=== PATIENT | male | born 1970 | race Caucasian/White ===

== ENCOUNTER 2016-08-05 21:17 | Emergency (ER) | payer OTHER ==
[~2016-08-05] VITALS: Ht 188 cm; Wt 158.6 kg
[~2016-08-05 21:17] MED LIST: AVENTYL,PAMELOR25 MG PO; CELEBREX200 MG PO; ELIQUIS5 MG PO; LIORESAL I2000 MCG/1 IT; NEURONTIN300 MG PO; NEURONTIN600 MG PO; NORMODYNE,TRAN200 MG PO; PROCARDIA XL60 MG PO
[2016-08-05 22:49] VITALS: BP 130/70
== END 2016-08-05 22:54 | disposition home or self-care (01) ==
LOC: EME 21:17
PROC: 0HBMXZZ Excision of Right Foot Skin, External Approach (ICD-10-PCS; principal; 2016-08-05)
DX: S91.301A Unspecified open wound, right foot, initial encounter (principal); L97.929 Non-pressure chronic ulcer of unspecified part of left lower leg with unspecified severity; L97.919 Non-pressure chronic ulcer of unspecified part of right lower leg with unspecified severity; I10 Essential (primary) hypertension; G62.9 Polyneuropathy, unspecified; G11.4 Hereditary spastic paraplegia; Z87.891 Personal history of nicotine dependence
CPT/HCPCS: 99281; 99283

== ENCOUNTER 2016-08-11 15:33 | Inpatient (IN) | payer OTHER ==
[~2016-08-11] VITALS: Ht 188 cm; Wt 161.3 kg
[2016-08-11 17:31] LABS: EOSINOPHIL (%) 0.8 % (0-5); EOSINOPHIL COUNT 0.1 K/uL (0-0.3); HEMATOCRIT 35.1 % (38.0-50.0); IMMATURE GRANULOCYTE (%) 0.6 % (0.0-0.7); IMMATURE GRANULOCYTE COUNT 0.1 K/uL; INSTRUMENT ABS NEUTROPHIL CT 9.1 K/uL; LYMPHOCYTE COUNT 1.8 K/uL (1.0-2.8); MCH 27.7 PG (29.0-34.0); MCHC 31.9 G/DL (30.0-36.0); MCV 86.7 FL (86-99); MEAN PLAT.VOLUME 9.7 uM^3 (9.0-12.4); MONOCYTE (%) 7.1 % (3-12); MONOCYTE COUNT 0.9 K/uL (0-0.8); NEUTROPHIL (%) 75.9 % (45-76); NEUTROPHIL COUNT 9.1 K/uL (1.8-6.4); PLATELET COUNT 364 K/uL (156-360); RBC DIS.WIDTH-CV 14.1 % (11.8-14.6); RBC DIS.WIDTH-SD 45.1 % (39-53); RED BLOOD COUNT 4.05 M/uL (4.00-5.50)
[2016-08-11 18:11] LABS: CHLORIDE 103 mEq/L (99-109); POTASSIUM 4.1 mEq/L (3.7-5.4); SODIUM 137 mEq/L (136-147)
[2016-08-11 18:13] LABS: GLUCOSE 66 mg/dL (70-99)
[2016-08-11 18:14] LABS: ANION GAP 8 MEQ/L (2-14)
[2016-08-11 18:17] LABS: GFR ESTIMATE (CALCULATED) > 59 mL/min/
[2016-08-11 18:18] LABS: UREA NITROGEN (BUN) 15 mg/dL (9-23)
[2016-08-11 18:42] LABS: POINT-OF-CARE METER ID UU14100415; POINT-OF-CARE USER ID PUTMLD10
[2016-08-11] MEDS ORDERED: ELIQUIS5 MG PO (19:21)
[2016-08-11] MEDS ORDERED: MICRO-K10 ME2 PO (19:22)
[2016-08-11] MEDS ORDERED: GLIMEPIRIDE2 MG PO (19:22)
[2016-08-11] MEDS ORDERED: MAGNESIUM250 MG PO (19:22)
[2016-08-11] MEDS ORDERED: FUROSEMIDE40 MG PO (19:23)
[2016-08-11] MEDS ORDERED: KETOCONAZOLE120 ML TP (19:23)
[2016-08-11] MEDS ORDERED: LYRICA75 MG PO (19:24)
[2016-08-11] MEDS ORDERED: METFORMIN HCL750 MG PO (19:24)
[2016-08-11] MEDS ORDERED: CLINDAMYCIN HC150 MG PO (19:25)
[2016-08-11] MEDS ORDERED: BUSPAR10 MG PO (19:26)
[2016-08-11 20:42] LABS: CREATINE KINASE 239 IU/L (1-294)
[2016-08-11 21:21] VITALS: BP 132/73
[2016-08-11 21:41] LABS: POINT-OF-CARE METER ID UU13113725
[2016-08-12 00:16] LABS: POINT-OF-CARE METER ID UU13113725
[2016-08-12 01:03] LABS: POINT-OF-CARE METER ID UU13113725
[2016-08-12 03:33] LABS: POINT-OF-CARE METER ID UU13113725
[2016-08-12 06:28] LABS: POINT-OF-CARE METER ID UU13113725
[2016-08-12 07:29] LABS: BASOPHIL COUNT 0.1 K/uL (0-0.1); EOSINOPHIL (%) 1.1 % (0-5); EOSINOPHIL COUNT 0.1 K/uL (0-0.3); HEMATOCRIT 33.1 % (38.0-50.0); IMMATURE GRANULOCYTE (%) 0.5 % (0.0-0.7); IMMATURE GRANULOCYTE COUNT 0.1 K/uL; INSTRUMENT ABS NEUTROPHIL CT 7.4 K/uL; LYMPHOCYTE COUNT 1.8 K/uL (1.0-2.8); MCH 27.4 PG (29.0-34.0); MCHC 31.1 G/DL (30.0-36.0); MEAN PLAT.VOLUME 10.4 uM^3 (9.0-12.4); MONOCYTE (%) 6.3 % (3-12); MONOCYTE COUNT 0.6 K/uL (0-0.8); NEUTROPHIL (%) 73.8 % (45-76); NEUTROPHIL COUNT 7.4 K/uL (1.8-6.4); PLATELET COUNT 337 K/uL (156-360); RBC DIS.WIDTH-CV 14.5 % (11.8-14.6); RBC DIS.WIDTH-SD 46.4 % (39-53); RED BLOOD COUNT 3.76 M/uL (4.00-5.50); WHITE BLOOD COUNT 10.1 K/uL (4.1-10.2)
[2016-08-12 07:54] LABS: ANION GAP 8 MEQ/L (2-14); CHLORIDE 102 MEQ/L (99-109); GFR ESTIMATE (CALCULATED) > 59 mL/min/; POTASSIUM 4.2 MEQ/L (3.7-5.4); SAMPLE HEMOLYSIS CHECK 0; SAMPLE ICTERIC CHECK 0; SAMPLE LIPEMIA CHECK 0; SODIUM 138 MEQ/L (136-147); UREA NITROGEN (BUN) 11 mg/dL (9-23)
[2016-08-12 07:57] LABS: GLUCOSE 83 mg/dL (70-99)
[2016-08-12 08:10] VITALS: BP 123/64
[2016-08-12 16:07] VITALS: BP 119/59
[2016-08-12 17:29] LABS: Estimated Average Glucose 148 mg/dL (70-123); HEMOGLOBIN A1c (GLYCOHEMOGLOB) 6.8 % HGB (Below 5.7)
[2016-08-12 21:45] LABS: POINT-OF-CARE METER ID UU13113725
[2016-08-12 22:50] VITALS: BP 112/62
[2016-08-13 06:05] LABS: POINT-OF-CARE METER ID UU13113725
[2016-08-13 06:41] LABS: HEMATOCRIT 34.7 % (38.0-50.0); MCV 87.6 FL (86-99); MEAN PLAT.VOLUME 10.3 uM^3 (9.0-12.4); PLATELET COUNT 395 K/uL (156-360); RBC DIS.WIDTH-CV 14.3 % (11.8-14.6); RBC DIS.WIDTH-SD 45.8 % (39-53); RED BLOOD COUNT 3.96 M/uL (4.00-5.50); WHITE BLOOD COUNT 11.4 K/uL (4.1-10.2)
[2016-08-13 07:09] LABS: ANION GAP 8 MEQ/L (2-14); CHLORIDE 100 MEQ/L (99-109); GFR ESTIMATE (CALCULATED) > 59 mL/min/; GLUCOSE 92 mg/dL (70-99); POTASSIUM 4.4 MEQ/L (3.7-5.4); SAMPLE HEMOLYSIS CHECK 0; SAMPLE ICTERIC CHECK 0; SAMPLE LIPEMIA CHECK 0; SODIUM 135 MEQ/L (136-147); UREA NITROGEN (BUN) 10 mg/dL (9-23)
[2016-08-13 07:24] VITALS: BP 154/65
[2016-08-13 15:19] VITALS: BP 151/67
[2016-08-13 22:44] VITALS: BP 111/61
[2016-08-14 07:04] VITALS: BP 136/71
[2016-08-14 15:52] VITALS: BP 132/86
[2016-08-14 16:43] LABS: POINT-OF-CARE METER ID UU13113725
[2016-08-14 23:06] VITALS: BP 108/58
[2016-08-15 07:45] VITALS: BP 116/61
[2016-08-15 17:14] VITALS: BP 108/61
[2016-08-15 23:20] VITALS: BP 136/85
[2016-08-16 08:03] VITALS: BP 136/87
[2016-08-16] MEDS ORDERED: CIPRO750 MG PO (11:47)
== END 2016-08-16 16:33 | disposition home health service (06) | DRG 593 ==
LOC: EME 15:33 → EDOF 19:38 → 5EAST 19:38
PROVIDERS: Emergency Medicine; Hospitalist
PROC: 0HDLXZZ Extraction of Left Lower Leg Skin, External Approach (ICD-10-PCS; principal; 2016-08-12)
PROC: 0HDKXZZ Extraction of Right Lower Leg Skin, External Approach (ICD-10-PCS; principal; 2016-08-12)
PROC: 0HDKXZZ Extraction of Right Lower Leg Skin, External Approach (ICD-10-PCS; 2016-08-15)
PROC: 0HDMXZZ Extraction of Right Foot Skin, External Approach (ICD-10-PCS; 2016-08-15)
DX: L97.811 Non-pressure chronic ulcer of other part of right lower leg limited to breakdown of skin (principal); L03.115 Cellulitis of right lower limb; I82.811 Embolism and thrombosis of superficial veins of right lower extremity; G11.4 Hereditary spastic paraplegia; Q60.0 Renal agenesis, unilateral; Z68.42 Body mass index [BMI] 45.0-49.9, adult; L97.821 Non-pressure chronic ulcer of other part of left lower leg limited to breakdown of skin; L97.311 Non-pressure chronic ulcer of right ankle limited to breakdown of skin; L97.511 Non-pressure chronic ulcer of other part of right foot limited to breakdown of skin; B96.5 Pseudomonas (aeruginosa) (mallei) (pseudomallei) as the cause of diseases classified elsewhere; B95.61 Methicillin susceptible Staphylococcus aureus infection as the cause of diseases classified elsewhere; B95.4 Other streptococcus as the cause of diseases classified elsewhere; E11.621 Type 2 diabetes mellitus with foot ulcer; E11.649 Type 2 diabetes mellitus with hypoglycemia without coma; E11.42 Type 2 diabetes mellitus with diabetic polyneuropathy; I10 Essential (primary) hypertension; N31.9 Neuromuscular dysfunction of bladder, unspecified; E78.5 Hyperlipidemia, unspecified; R33.9 Retention of urine, unspecified; D64.9 Anemia, unspecified; I87.2 Venous insufficiency (chronic) (peripheral); I89.0 Lymphedema, not elsewhere classified; E66.01 Morbid (severe) obesity due to excess calories; Z99.3 Dependence on wheelchair; Z86.711 Personal history of pulmonary embolism; Z79.01 Long term (current) use of anticoagulants; Z87.440 Personal history of urinary (tract) infections; Z87.891 Personal history of nicotine dependence
CPT/HCPCS: 80048; 82550; 82948; 83036; 85025; 85027; 87040; 87070; 87075; 87077; 87186; 87205; 93971; 94660; 99281; 99285; J1815; J2543; J3370; J7050; S0032

== ENCOUNTER 2016-10-06 17:20 | Emergency (ER) | payer OTHER ==
[~2016-10-06] VITALS: Ht 188 cm; Wt 150.0 kg
[~2016-10-06 17:20] MED LIST changes: +BUSPAR10 MG PO; +CIPRO750 MG PO; +CLINDAMYCIN HC150 MG PO; +FUROSEMIDE40 MG PO; +GLIMEPIRIDE2 MG PO; +KETOCONAZOLE120 ML TP; +LYRICA75 MG PO; +MAGNESIUM250 MG PO; +METFORMIN HCL750 MG PO; +MICRO-K10 ME2 PO
[2016-10-06 18:30] VITALS: BP 139/81
[2016-10-06 18:32] LABS: ADD MIUA? YES; BILIRUBIN NEGATIVE; BLOOD LARGE; COLOR YELLOW ((YELLOW)); GLUCOSE (STRIP) NEGATIVE; KETONES NEGATIVE; LEUKOCYTES MODERATE; NITRITE NEGATIVE; PROTEIN (STRIP) 100; SPECIFIC GRAVITY 1.014 (1.000-1.030); UROBILINOGEN 0.2 MG/DL (0.2-1.0)
[2016-10-06 18:33] LABS: EOSINOPHIL (%) 1.4 % (0-5); EOSINOPHIL COUNT 0.2 K/uL (0-0.3); HEMATOCRIT 44.3 % (38.0-50.0); IMMATURE GRANULOCYTE (%) 0.3 % (0.0-0.7); INSTRUMENT ABS NEUTROPHIL CT 7.9 K/uL; LYMPHOCYTE COUNT 2.2 K/uL (1.0-2.8); MCH 27.8 PG (29.0-34.0); MCHC 32.7 G/DL (30.0-36.0); MEAN PLAT.VOLUME 11.5 uM^3 (9.0-12.4); MONOCYTE (%) 7.7 % (3-12); MONOCYTE COUNT 0.9 K/uL (0-0.8); NEUTROPHIL (%) 70.4 % (45-76); NEUTROPHIL COUNT 7.9 K/uL (1.8-6.4); PLATELET COUNT 232 K/uL (156-360); RBC DIS.WIDTH-CV 15.3 % (11.8-14.6); RBC DIS.WIDTH-SD 47.7 % (39-53); RED BLOOD COUNT 5.21 M/uL (4.00-5.50); WHITE BLOOD COUNT 11.2 K/uL (4.1-10.2)
[2016-10-06 18:35] LABS: BACTERIA RARE /HPF; EPITHELIAL CELLS NONE SEEN /HPF; MUCUS TRACE /LPF; RED BLOOD CELLS TNTC /HPF (0-5); UCUL ADDED? NO; WHITE BLOOD CELLS 0-5 /HPF (0-5)
[2016-10-06 18:43] LABS: CHLORIDE 110 mEq/L (99-109); POTASSIUM 3.7 mEq/L (3.7-5.4); SODIUM 143 mEq/L (136-147)
[2016-10-06 18:44] LABS: GLUCOSE 88 mg/dL (70-99)
[2016-10-06 18:46] LABS: ANION GAP 10 MEQ/L (2-14)
[2016-10-06 18:48] LABS: GFR ESTIMATE (CALCULATED) > 59 mL/min/
[2016-10-06 18:49] LABS: UREA NITROGEN (BUN) 24 mg/dL (9-23)
[2016-10-06] MEDS ORDERED: LEVAQUIN250 MG PO (19:27)
== END 2016-10-06 19:51 | disposition home or self-care (01) ==
LOC: EME 17:20
PROVIDERS: Emergency Medicine
PROC: 0T2BX0Z Change Drainage Device in Bladder, External Approach (ICD-10-PCS; principal; 2016-10-06)
DX: N30.01 Acute cystitis with hematuria (principal); T83.091A Other mechanical complication of indwelling urethral catheter, initial encounter; G11.4 Hereditary spastic paraplegia; I10 Essential (primary) hypertension; E11.9 Type 2 diabetes mellitus without complications; Z79.82 Long term (current) use of aspirin; Z79.01 Long term (current) use of anticoagulants; Z87.891 Personal history of nicotine dependence; Z99.3 Dependence on wheelchair
CPT/HCPCS: 80048; 81003; 85025; 99281; 99285

== ENCOUNTER → 2017-02-03 | Outpatient (CLI) | payer OTHER ==
[~2017-02-03] MED LIST changes: +LEVAQUIN250 MG PO
== END | disposition home or self-care (01) ==
LOC: CDC 12:00
DX: I45.4 Nonspecific intraventricular block (principal)
CPT/HCPCS: 93000